=== PATIENT | male | born 1930 | race Caucasian/White ===

== ENCOUNTER 2017-04-16 13:54 | Emergency (ER) | payer MEDICARE, BC ==
[2017-04-16 14:28] VITALS: BP 150/80
--- NOTE | 2017-04-16 14:35 | UC ---
Respiratory Complaint HPI - HPI Summary HPI Summary: Pt presents with dry cough, fatigue, sinus pain/pressure/congestion, and right ear pain for the last 4 days. Has been taking OTC mucinex. Has not felt feverish. Denies chills, SOB, chest pain, abdominal pain, n/v/d/c. - History of Current Complaint Chief Complaint: UCRespiratory Stated Complaint: FLU SYMPTOMS Time Seen by Provider: 04/16/17 14:35 Hx Obtained From: Patient Onset/Duration: Gradual Onset Severity Initially: Mild Severity Currently: Mild Pain Intensity: 1 Pain Scale Used: 0-10 Numeric Character: Cough: Nonproductive - Allergies/Home Medications Allergies/Adverse Reactions: Allergies Allergy/AdvReac Type Severity Reaction Status Date / Time Ciprofloxacin [From Cipro] Allergy Pain Verified 04/16/17 14:28 Home Medications: Home Medications Acetaminophen [APAP] 325 mg PO 04/16/17 [History] Aspirin 81 mg PO 04/16/17 [History] Doxazosin Mesylate 4 mg PO 04/16/17 [History] Fexofenadine (NF) [Sera 180 (NF)] 180 mg PO 04/16/17 [History] Multiple Vitamins W/ Minerals [Multivitamin Adults 50+] 1 tab PO 04/16/17 [ History] Propranolol HCl 80 mg PO 04/16/17 [History Confirmed 04/16/17] Verapamil HCl [Verapamil HCl ER] 240 mg PO 04/16/17 [History] PMH/Surg Hx/FS Hx/Imm Hx Cardiovascular History: Hypertension - Surgical History Surgical History: None - Family History Known Family History: Positive: Cardiac Disease, Hypertension - Social History Occupation: Retired Lives: With Family Alcohol Use: None Substance Use Type: None Smoking Status (MU): Former Smoker Review of Systems Constitutional: Fatigue Skin: Negative Eyes: Negative ENT: Ear Ache, Nasal Discharge, Sinus Congestion, Sinus Pain/Tenderness Respiratory: Cough Cardiovascular: Negative Gastrointestinal: Negative Musculoskeletal: Negative Neurological: Negative Psychological: Negative All Other Systems Reviewed And Are Negative: Yes Physical Exam Triage Information Reviewed: Yes Appearance: Well-Appearing, No Pain Distress, Well-Nourished Vital Signs: Initial Vital Signs Temp 97.7 F 04/16/17 14:21 Pulse 59 04/16/17 14:21 Resp 18 04/16/17 14:21 BP 150/80 04/16/17 14:21 Pulse Ox 95 04/16/17 14:21 Vital Signs Reviewed: Yes Eyes: Positive: Conjunctiva Clear. Negative: Conjunctiva Inflamed, Discharge ENT: Positive: Hearing grossly normal, Pharynx normal, Nasal congestion, Nasal drainage, TMs normal, Uvula midline. Negative: Pharyngeal erythema, TM bulging , TM dull, TM red, Tonsillar swelling, Tonsillar exudate, Sinus tenderness Neck: Positive: Supple, Nontender, No Lymphadenopathy Respiratory: Positive: Chest non-tender, Lungs clear, No respiratory distress, No accessory muscle use, Decreased breath sounds Cardiovascular: Positive: RRR, No Murmur, Pulses Normal Neurological: Positive: Alert Psychological: Positive: Age Appropriate Behavior Skin: Negative: rashes UC Diagnostic Evaluation - Laboratory O2 Sat by Pulse Oximetry: 95 Respiratory Course/Dx - Course Course Of Treatment: CXR: IMPRESSION: NO ACTIVE CARDIOPULMONARY DISEASE. Flu A positive - treat with tamiflu - Differential Dx/Diagnosis Provider Diagnoses: Influenza A Discharge - Discharge Plan Condition: Stable Disposition: HOME Prescriptions: Oseltamivir CAP* [Tamiflu CAP*] 75 mg PO BID #10 cap Patient Education Materials: Influenza (ED) Referrals: Jordy Thomas MD [Primary Care Provider] - Additional Instructions: If you develop a fever, shortness of breath, chest pain, new or worsening symptoms - please call your PCP or go to the ED. Your blood pressure was high at todays visit. Please see your primary provider within 4 weeks for recheck and re-evaluation.
--- NOTE | 2017-04-16 15:03 | RAD ---
HISTORY: Cough, fever, shortness of breath COMPARISONS: None VIEWS: 4: Frontal dual-energy and lateral views of the chest. FINDINGS: CARDIOMEDIASTINAL SILHOUETTE: The cardiomediastinal silhouette is normal. MYRIAM: The myriam are normal. PLEURA: The costophrenic angles are sharp. No pleural abnormalities are noted. LUNG PARENCHYMA: The lungs are clear. ABDOMEN: The upper abdomen is clear. There is no subphrenic gas. BONES AND SOFT TISSUES: No bone or soft tissue abnormalities are noted. OTHER: None. IMPRESSION: NO ACTIVE CARDIOPULMONARY DISEASE.
== END 2017-04-16 15:36 | disposition home or self-care (01) ==
LOC: UCEAST 13:54
DX: J09.X2 Influenza due to identified novel influenza A virus with other respiratory manifestations (principal); I10 Essential (primary) hypertension; Z88.3 Allergy status to other anti-infective agents; Z79.82 Long term (current) use of aspirin; Z87.891 Personal history of nicotine dependence
CPT/HCPCS: 71046; 87502; 99212; G0463

== ENCOUNTER 2020-03-11 12:22 | Observation (INO) ==
[2020-03-11 13:22] LABS: ABS Eosinophils 0.1 10^3/ul (0-0.6); ABS Lymphocytes 1.6 10^3/ul (1.0-4.8); ABS Monocytes 0.7 10^3/ul (0-0.8); ABS Neutrophils 4.9 10^3/ul (1.5-7.7); Eosinophil % 1.3 %; Hematocrit 41 % (42-52); Lymphocyte % 22.1 %; Mean Corpuscular HGB Conc 34 g/dL (31-36); Mean Corpuscular Hemoglobin 31 pg (27-31); Mean Corpuscular Volume 90 fL (80-94); Mean Platelet Volume 9.1 fL (7.4-10.4); Platelet Count 208 10^3/uL (150-450); Red Blood Count 4.51 10^6 /uL (4.18-5.48); Red Cell Distribution Width 14 % (10-15); White Blood Count 7.5 10^3/uL (3.5-10.8)
[2020-03-11 13:42] LABS: Albumin 2.2 g/dL (3.2-5.2); Albumin/Globulin Ratio 0.8 (1-3); BUN/Creatinine Ratio 34.6 (8-20); C Reactive Protein 7.36 mg/L (<8.01); Calcium 7.8 mg/dL (8.6-10.3); EGFR African American 50.1 (>60); EGFR Non-African American 41.4 (>60); Globulin 2.8 g/dL (2-4); Potassium 4.6 mmol/L (3.5-5.0); Total Bilirubin 0.4 mg/dL (0.2-1.0)
[2020-03-11 13:44] LABS: Troponin I 0.02 ng/mL (<0.03)
[2020-03-11 13:46] LABS: CKMB ng/mL 6.8 ng/mL (0.6-6.3)
[2020-03-11 13:54] LABS: Activated Partial Thrombo Time 29.5 seconds (26.0-38.0); INR 0.95 (0.82-1.09)
[2020-03-11] MEDS ORDERED: Furosemide 40 mg/4 ml IV VIAL IV ONE (15:13)
[2020-03-11] MEDS ORDERED: Furosemide 20 mg/2 ml IV VIAL IV ONE (15:52)
[2020-03-11] MEDS ORDERED: Labetalol IV 5 MG/ML 20 ml VIAL IV PUSH ONE (18:12)
[2020-03-11] MEDS ORDERED: hydrALAZINE 20 mg/ml 1 ML Vial IV IV SLOW PU ONE (18:17)
[2020-03-11] MEDS ORDERED: hydrALAZINE 20 mg/ml 1 ML Vial IV IV SLOW PU PRN (18:54)
[2020-03-11 19:10] LABS: Magnesium 2.6 mg/dL (1.9-2.7)
[2020-03-11] MEDS: Propranolol 80 mg TAB PO SCH (21:24)
[2020-03-12 04:24] LABS: ABS Eosinophils 0.2 10^3/ul (0-0.6); ABS Lymphocytes 1.9 10^3/ul (1.0-4.8); ABS Monocytes 0.8 10^3/ul (0-0.8); ABS Neutrophils 2.8 10^3/ul (1.5-7.7); Eosinophil % 3.8 %; Hematocrit 38 % (42-52); Hemoglobin 13.2 g/dL (14.0-18.0); Mean Corpuscular HGB Conc 35 g/dL (31-36); Mean Corpuscular Hemoglobin 31 pg (27-31); Mean Corpuscular Volume 90 fL (80-94); Mean Platelet Volume 8.9 fL (7.4-10.4); Platelet Count 180 10^3/uL (150-450); Red Blood Count 4.25 10^6 /uL (4.18-5.48); Red Cell Distribution Width 14 % (10-15); White Blood Count 5.7 10^3/uL (3.5-10.8)
[2020-03-12 04:39] LABS: BUN/Creatinine Ratio 33.5 (8-20); Calcium 7.3 mg/dL (8.6-10.3); EGFR African American 48.3 (>60); EGFR Non-African American 39.9 (>60); Magnesium 2.6 mg/dL (1.9-2.7); Potassium 4.5 mmol/L (3.5-5.0)
[2020-03-12] MEDS ORDERED: Furosemide 40 mg/4 ml IV VIAL IV SLOW PU SCH ×2 (07:00→09:00)
[2020-03-12] MEDS: Propranolol 80 mg TAB PO SCH (07:33)
[2020-03-12 08:15] LABS: Urine Appearance Cloudy; Urine Bilirubin Negative (Negative); Urine Blood Negative (Negative); Urine Color Yellow; Urine Glucose 1+(50 mg/dL) (Negative); Urine Ketones Negative (Negative); Urine Nitrite Negative (Negative); Urine Protein 3+(>=500 mg/dL) (Negative); Urine Urobilinogen Negative (Negative)
[2020-03-12] MEDS ORDERED: Enoxaparin 40 MG/0.4 ML SYR SUBCUT SCH (09:00)
[2020-03-12] MEDS ORDERED: Multivitamins/Minerals TAB PO SCH (09:00)
[2020-03-12 09:10] LABS: Urine Bacteria Absent (Absent); Urine Red Blood Cell 2+(6-10/hpf) (Absent); Urine Squamous Epithelial Cell Present (Absent); Urine White Blood Cell 1+(6-10/hpf) (Absent)
[2020-03-12 15:29] VITALS: BP 143/47
== END 2020-03-12 16:40 | disposition home or self-care (01) ==
LOC: ED 12:22 → MEDTELE 12:22
PROVIDERS: ADMIT Hospitalist; ATTEND Internal Medicine

== ENCOUNTER 2020-03-14 16:56 | Inpatient (IN) ==
[2020-03-14 17:49] LABS: ABS Eosinophils 0.1 10^3/ul (0-0.6); ABS Lymphocytes 1.7 10^3/ul (1.0-4.8); ABS Monocytes 0.7 10^3/ul (0-0.8); ABS Neutrophils 3.9 10^3/ul (1.5-7.7); Eosinophil % 1.9 %; Hematocrit 40 % (42-52); Hemoglobin 13.6 g/dL (14.0-18.0); Lymphocyte % 26.4 %; Mean Corpuscular HGB Conc 34 g/dL (31-36); Mean Corpuscular Hemoglobin 31 pg (27-31); Mean Corpuscular Volume 90 fL (80-94); Mean Platelet Volume 9.4 fL (7.4-10.4); Platelet Count 211 10^3/uL (150-450); Red Blood Count 4.43 10^6 /uL (4.18-5.48); Red Cell Distribution Width 14 % (10-15); White Blood Count 6.5 10^3/uL (3.5-10.8)
[2020-03-14 18:06] LABS: Anion Gap 4 mmol/L (2-11); BUN/Creatinine Ratio 30.5 (8-20); Blood Urea Nitrogen 57 mg/dL (6-24); CO2 Carbon Dioxide 29 mmol/L (22-32); Calcium 7.6 mg/dL (8.6-10.3); Chloride 106 mmol/L (101-111); EGFR African American 41.5 (>60); EGFR Non-African American 34.3 (>60); Glucose 108 mg/dL (70-100); Potassium 4.4 mmol/L (3.5-5.0); Sodium 139 mmol/L (135-145)
[2020-03-14] MEDS ORDERED: Furosemide 40 mg/4 ml IV VIAL IV ONE (18:28)
[2020-03-14 18:30] LABS: Troponin I 0.03 ng/mL (<0.03)
[2020-03-14 18:58] LABS: Magnesium 2.5 mg/dL (1.9-2.7)
[2020-03-14] MEDS ORDERED: hydrALAZINE 20 mg/ml 1 ML Vial IV IV SLOW PU PRN (21:29)
[2020-03-15 00:01] LABS: Troponin I 0.03 ng/mL (<0.03)
[2020-03-15] MEDS: Enoxaparin 40 MG/0.4 ML SYR SUBCUT SCH ×2 (00:45→21:02)
[2020-03-15 06:19] LABS: BUN/Creatinine Ratio 35.1 (8-20); Calcium 7.3 mg/dL (8.6-10.3); EGFR Non-African American 42.9 (>60); Potassium 3.5 mmol/L (3.5-5.0)
[2020-03-15] MEDS: Furosemide 40 mg/4 ml IV VIAL IV SLOW PU SCH ×2 (08:29→15:19)
[2020-03-15] MEDS: Vitamin THERAPEUTIC TAB PO SCH (08:29)
[2020-03-15] MEDS ORDERED: Propranolol 80 mg TAB PO SCH (09:00)
[2020-03-15] MEDS ORDERED: DOXAZOSIN 4 MG PO SCH (18:00)
[2020-03-16 05:34] LABS: ABS Eosinophils 0.2 10^3/ul (0-0.6); ABS Lymphocytes 2.1 10^3/ul (1.0-4.8); ABS Monocytes 0.8 10^3/ul (0-0.8); ABS Neutrophils 2.4 10^3/ul (1.5-7.7); Eosinophil % 3.9 %; Hematocrit 35 % (42-52); Hemoglobin 12.2 g/dL (14.0-18.0); Lymphocyte % 38.2 %; Mean Corpuscular HGB Conc 36 g/dL (31-36); Mean Corpuscular Hemoglobin 31 pg (27-31); Mean Corpuscular Volume 88 fL (80-94); Mean Platelet Volume 9.2 fL (7.4-10.4); Platelet Count 172 10^3/uL (150-450); Red Cell Distribution Width 14 % (10-15); White Blood Count 5.6 10^3/uL (3.5-10.8)
[2020-03-16 05:50] LABS: Calcium 7.1 mg/dL (8.6-10.3); Potassium 3.6 mmol/L (3.5-5.0)
[2020-03-16 05:56] LABS: BUN/Creatinine Ratio 37.5 (8-20); EGFR Non-African American 49.6 (>60)
[2020-03-16] MEDS: Furosemide 40 mg/4 ml IV VIAL IV SLOW PU SCH ×2 (07:38→17:39)
[2020-03-16] MEDS: Vitamin THERAPEUTIC TAB PO SCH (08:47)
[2020-03-16] MEDS: Dextran 70/Hypromellose Tears Eye Drops 15 ml BTL (for Artificials Tears) BOTH EYES PRN (10:47)
[2020-03-16] MEDS: Enoxaparin 40 MG/0.4 ML SYR SUBCUT SCH (20:38)
[2020-03-17] MEDS: Bumetanide IV 0.25 MG/ML 4 ml VIAL (1 mg) SLOW PUSH SCH ×3 (06:29→21:58)
[2020-03-17] MEDS: Vitamin THERAPEUTIC TAB PO SCH (08:25)
[2020-03-17] MEDS: Dextran 70/Hypromellose Tears Eye Drops 15 ml BTL (for Artificials Tears) BOTH EYES PRN (08:36)
[2020-03-17] MEDS: Enoxaparin 40 MG/0.4 ML SYR SUBCUT SCH (21:59)
[2020-03-18 07:57] VITALS: BP 151/43
[2020-03-18] MEDS: Vitamin THERAPEUTIC TAB PO SCH (08:47)
[2020-03-18] MEDS: Bumetanide IV 0.25 MG/ML 4 ml VIAL (1 mg) SLOW PUSH SCH (08:47)
== END 2020-03-18 11:00 | disposition home or self-care (01) | DRG 292 ==
LOC: MEDTELE 16:56 → ED 16:56 → MEDTELE 03-16 20:17
PROVIDERS: ADMIT Student in an Organized Health Care Education/Training Program; ATTEND Internal Medicine

== ENCOUNTER 2020-06-15 03:12 | Observation (INO) ==
[2020-06-15 05:36] LABS: ABS Lymphocytes 0.8 10^3/ul (1.0-4.8); ABS Monocytes 0.7 10^3/ul (0-0.8); ABS Neutrophils 8.5 10^3/ul (1.5-7.7); Eosinophil % 0.2 %; Hematocrit 28 % (42-52); Hemoglobin 9.9 g/dL (14.0-18.0); Lymphocyte % 8.3 %; Mean Corpuscular HGB Conc 35 g/dL (31-36); Mean Corpuscular Hemoglobin 31 pg (27-31); Mean Corpuscular Volume 89 fL (80-94); Mean Platelet Volume 8.8 fL (7.4-10.4); Platelet Count 178 10^3/uL (150-450); Red Blood Count 3.19 10^6 /uL (4.18-5.48); Red Cell Distribution Width 13 % (10-15); White Blood Count 10.1 10^3/uL (3.5-10.8)
[2020-06-15 05:42] LABS: INR 1.01 (0.82-1.09)
[2020-06-15 05:51] LABS: ALT 35 U/L (7-52); AST 20 U/L (13-39); Albumin 2.5 g/dL (3.2-5.2); Albumin/Globulin Ratio 0.9 (1-3); Alkaline Phosphatase 57 U/L (34-104); Anion Gap 8 mmol/L (2-11); BUN/Creatinine Ratio 30.7 (8-20); Blood Urea Nitrogen 51 mg/dL (6-24); CO2 Carbon Dioxide 39 mmol/L (22-32); Calcium 8.3 mg/dL (8.6-10.3); Chloride 92 mmol/L (101-111); EGFR African American 47.7 (>60); EGFR Non-African American 39.4 (>60); Globulin 2.9 g/dL (2-4); Glucose 147 mg/dL (70-100); Sodium 139 mmol/L (135-145); Total Protein 5.4 g/dL (6.4-8.9)
[2020-06-15 05:56] LABS: Troponin I 0.07 ng/mL (<0.03)
[2020-06-15 06:25] LABS: Urine Appearance Clear; Urine Bilirubin Negative (Negative); Urine Blood Negative (Negative); Urine Color Straw; Urine Glucose Negative (Negative); Urine Ketones Negative (Negative); Urine Nitrite Negative (Negative); Urine Protein 2+(100 mg/dL) (Negative); Urine Specific Gravity 1.006 (1.010-1.030); Urine Urobilinogen Negative (Negative)
[2020-06-15 06:40] LABS: Urine Red Blood Cell Trace(0-2/hpf) (Absent); Urine White Blood Cell Trace(0-5/hpf) (Absent)
[2020-06-15 06:41] LABS: Urine Bacteria Absent (Absent); Urine Squamous Epithelial Cell Present (Absent)
[2020-06-15] MEDS ORDERED: Potassium Chlor 20 meq TAB.ER PO ONE (07:18)
[2020-06-15 08:54] LABS: Troponin I 0.09 ng/mL (<0.03)
[2020-06-15 14:33] LABS: Troponin I 0.08 ng/mL (<0.03)
[2020-06-15] MEDS: Heparin 5000 UNITS/ML 1 mL VIAL SUBCUT SCH (20:34)
[2020-06-16 07:19] LABS: BUN/Creatinine Ratio 31.3 (8-20); Blood Urea Nitrogen 46 mg/dL (6-24); Chloride 96 mmol/L (101-111); EGFR African American 54.8 (>60); EGFR Non-African American 45.3 (>60); Glucose 116 mg/dL (70-100); Potassium 3.4 mmol/L (3.5-5.0); Sodium 142 mmol/L (135-145)
[2020-06-16] MEDS ORDERED: Potassium Chlor 20 meq TAB.ER PO ONE (07:34)
[2020-06-16 07:43] LABS: Anion Gap 6 mmol/L (2-11); CO2 Carbon Dioxide 40 mmol/L (22-32)
[2020-06-16 09:27] LABS: % Iron Saturation 37 % (15-55); Iron 77 ug/dL (50-212); Total Iron Binding Capacity 206 mcg/dL (250-450); Transferrin 147 mg/dL (203-362); Unsaturated Iron Binding < 191 ug/dL
[2020-06-16] MEDS: Heparin 5000 UNITS/ML 1 mL VIAL SUBCUT SCH (09:27)
[2020-06-16 09:49] LABS: Ferritin 528.2 ng/mL (24-336)
[2020-06-16 09:53] LABS: Folate > 20.00 ng/mL (>3.99); Vitamin B12 474 pg/mL (180-914)
[2020-06-16 16:44] VITALS: BP 124/40
== END 2020-06-16 15:50 | disposition home or self-care (01) ==
LOC: ED 03:12 → MEDTELE 03:12
PROVIDERS: ADMIT Student in an Organized Health Care Education/Training Program; ATTEND Hospitalist